=== PATIENT | male | born 1960 | race Caucasian/White ===

== ENCOUNTER → 2018-02-01 | Outpatient (CLI) | payer OTHER ==
--- NOTE | 2018-02-01 10:28 | ECHOS ---
STRESS ECHOCARDIOGRAM DATE OF SERVICE: 02/01/2018 INDICATIONS: Chest pain. MEDICATIONS: BASELINE HEART RATE: 86 BASELINE BLOOD PRESSURE: 120/71 MAXIMUM HEART RATE: 147 MAXIMUM BLOOD PRESSURE: 199/88 85% MPHR: 139 100% MPHR: 163 METS: 9.7 MAXIMUM STAGE REACHED: III TOTAL EXERCISE TIME: 8 minutes CLINICAL INFORMATION: Baseline rhythm is sinus mechanism, rate of 86, normal axis and intervals. Voltage criteria for left ventricular hypertrophy. Baseline blood pressure 120/71 mmHg. Patient exercised on Jorge protocol for 8 minutes reaching peak rate 147 beats per minute which is equal to 90% maximum predicted heart rate. Peak blood pressure 199/88 mmHg. Test was terminated secondary to fatigue. There was no chest pain. Electrocardiograph monitoring revealed rare PVCs. There was no evidence of diagnostic ischemic ST deviation. Baseline echocardiogram revealed normal wall thickening and motion. At peak exercise, there was normal wall motion augmentation with no hypokinesis or dyskinesis. CONCLUSION: 1. Good exercise tolerance with normal electrocardiograph response to exercise with rare PVCs. 2. Normal stress echocardiogram with no evidence of stress induced ischemia. MMODL / IJN: [id number] /
== END | disposition home or self-care (01) ==
LOC: RADNMMAIN 09:08
PROVIDERS: ATTEND Internal Medicine
DX: I49.3 Ventricular premature depolarization (principal)
CPT/HCPCS: 93351